=== PATIENT | female | born 1940 | race Caucasian/White ===

== ENCOUNTER 2016-12-14 10:00 | Inpatient (IN) | payer MEDICARE, MEDICAID ==
[~2016-12-14] VITALS: Ht 154.9 cm; Wt 45.4 kg
--- NOTE | ~2016-12-14 | ECH ---
Transthoracic Echocardiography Report (TTE) Demographics Patient Name BLANQUITA TORRES FEBRUARY Date of Study 12/15/2016 Patient Number [id number] Visit Number [id number] Date of 1940 Room Number 407 Accession Number [id number] Gender Female Age 76 year(s) Referring King Jean Claude Gray MD Divorce Lawyer Catrachita Johnson [facility] Physician Evaristo Stallworth MD Physician Interpreting [facility] [place] Transformer Coil Winder Physician MD Supervising Ordering Physician King Jean Claude Gray MD, MD/P Nurse Stress Migration Agent Conclusions Summary Technically fair exam. The estimated left ventricular ejection fraction is 60-65%. Diastolic assessment reveals Grade I diastolic dysfunction. Bubble study was done, there is no evidence for a PFO or ASD. Mild tricuspid regurgitation by color Doppler. Estimated pulmonary pressures within normal range. Procedure Type of Study TTE procedure:Echo Complete SF. Procedure Date Date: 12/15/2016 Start: 10:35 AM Technical Quality: Fair due to poor acoustical window. Indications:Elevated Troponin, Atrial fibrillation and CVA. Appropriate Use Criteria: 9 Contrast Medium: Bubble Study. Height: 61 inches Weight: 99 pounds BSA: 1.4 m Rhythm: Irregular HR: 61 bpm BP: 131/62 mmHg M-Mode/2D Measurements LV Diastolic Dimension: 4.66 cm LV Systolic Dimension: 3.87 cm LV Septum Diastolic: 0.92 cm LV PW Diastolic: 0.75 cm AO Root Dimension: 2.57 cm Cardiac Output: 3.32 l/min LA Dimension: 2.9 cm Cardiac Index: 2.37 l/min*m LA volume index: 18 ml/m LVOT: 1.57 cm RV Base: 2.1 cm LVOT VTI: 28.13 cm RV Mid: 1.3 cm LV Stroke volume: 54.43 ml RV Length: 4.3 cm LV Stroke volume index: 38.88 ml/m Doppler Measurements AV Mean Gradient: 4.18 mmHg MV Peak E-Wave: 0.69 m/s LVOT Peak Velocity: 1.26 m/s MV Peak A-Wave: 0.82 m/s AV Area (Continuity):1.84 cm MV P1/2t: 60.4 msec TR Velocity:2.64 m/s TR Gradient:27.88 mmHg MV Deceleration Time: 208.1 msec Estimated RAP:5 mmHg MV Area (PHT): 3.65 cm Estimated RVSP: 33 mmHg PV Peak Velocity: 1.55 m/s PV Peak Gradient: 9.59 mmHg Estimated PASP: 32.88 mmHg RA Area: 6.94 cm Findings Left Ventricle The left ventricle is normal in size . Diastolic assessment reveals Grade I diastolic dysfunction. Right Ventricle Normal right ventricle structure and function. Left Atrium Normal left atrial size. Bubble study was done, there is no evidence for a PFO or ASD. Right Atrium Normal right atrial size. Mitral Valve Normal mitral valve structure and function. Aortic Valve The aortic valve is mildly sclerotic. Tricuspid Valve Normal tricuspid valve structure and function. Mild tricuspid regurgitation by color Doppler. Estimated pulmonary pressures within normal range. Pulmonic Valve The pulmonic valve is not well visualized. Pericardial Effusion No evidence of pericardial effusion. Miscellaneous Visualized portions of the aortic root and ascending aorta appear normal in size. Pleural Effusion No evidence of pleural effusion. Contractility Score LV regional wall motion:(0-Non visualized 1-Normal 2-Hypokinesis 3-Akinesis 4-Dyskinesis 5-Aneurysm) Signature
--- NOTE | ~2016-12-14 | WND ---
ADMIT: 12/14/2016 RM/LOC: 407 [facility] MR#: [id number] [facility]#: [id number] [address] [address] BLANQUITA TORRES February [address] [place] [address] Wound Care Clinic SEX: F AGE: 76 : 1940 DATE OF VISIT: 12/18/2016 TIME IN: 1455 hours. TIME OUT: 1505 hours. REASON FOR VISIT: Evaluation and treatment of buttock wounds. This is a request for wound care from Dr. Clemens. HISTORY OF PRESENT ILLNESS: This is a 76-year-old female, who was seen by Wound Care in April of 2016 when she moved to live with her son and his family in [place], [place]. At that time, she was diagnosed with a stage II pressure ulcerations on her left and right buttock. Hydrocolloids was used to heal the wounds. On December 14, 2016, she came to the emergency room with concerns about leg weakness. She had a significant stroke with deficit on the left side in the past. CT scan showed a right basal ganglion defects, but no bleed. She is noted to have atrial fibrillation with rapid ventricular response. She was admitted to the inpatient status for further evaluation and care. She has been followed by Dr. Jean Claude Butt for atrial fib with rapid ventricular response, questionable chest pain. She converted to sinus rhythm on a Cardizem drip. She was also seen by Surgery because of upper gastrointestinal bleed, positive fecal occult blood test and went to surgery today for an EGD. It was noted that she has an open area on her coccyx, therefore [facility] was [facility] by Dr. Clemens for further evaluation and care. Patient was placed on a low air loss mattress. PAST MEDICAL HISTORY: Hypertension. Hyperlipidemia. Generalized anxiety disorder. Late effect of infarction. Hemiplegia with left hemiparesis. Osteoarthritis of the vertebral lumbar area. Stroke syndrome on April of 2015. Skin cancer removed from her arm. Cholecystectomy. [place] with angioplasty in 1984. Tobacco abuse. ALLERGIES: Penicillin. CURRENT MEDICATIONS: Per the MAR. Please see the MAR for further details: 1. Cardizem. 2. Klor-Con. 3. Lioresal. 4. Lipitor. 5. Lopressor. 6. Mucinex. 7. Neurontin. 8. Protonix. 9. Singulair. 10.DuoNeb. 11.Pulmicort. 12.Habitrol. 13.D5 and half-normal saline with KCl. ADMIT: 12/14/2016 RM/LOC: 407 [facility] MR#: [id number] [address] [address] [place] [place] [address] Wound Care Clinic SEX: F AGE: 76 : 1940 14.Merrem. 15.Nitroglycerin drip. P.r.n. medications include: 1. Maalox. 2. Surfak. 3. Tylenol. 4. DuoNeb. 5. Proventil. 6. Tylenol suppository. 7. Nitrostat. 8. Morphine. FAMILY HISTORY: Significant for diabetes in a sister. Heart disease in 2 sons and an older brother. She has a son with tuberculosis. Mother with bone cancer. Father from old age. SOCIAL HISTORY: She resides in [place], [place] with her son's family. 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 She continues to smoke 8-12 cigarettes per day and does so since age 15. No alcohol or illicit drug use. Regular diet. 9th grade education. REVIEW OF SYSTEMS: She is examined in her hospital room where she is awake and alert. However, she does not respond to questions. She is currently on a low air loss mattress, unable to obtain any other review of systems. PHYSICAL EXAMINATION: VITAL SIGNS: Temperature 96.5, pulse 60, respirations 16, blood pressure 141/61, and O2 sats on room air is 99%. Focused exam, body wide skin exam was done. She does appear to have some contractures in her lower extremities. On her sacral, coccyx, buttocks area and gluteal crease is a slit that measures 1.2 cm with a pink base. Slight maceration noted. There is pink scarring noted on the left buttock 0.6 x 0.4 ADMIT: 12/14/2016 RM/LOC: 407 [facility] MR#: [id number] [address] [address] [place] [place] [address] Wound Care Clinic SEX: F AGE: 76 : 1940 cm and pink scar in the right buttock 0.5 cm x 0.7 cm. The rest of the skin exam showed no issues. ASSESSMENT: Moisture-associated dermatitis, gluteal crease. PLAN: We will continue on a low air loss mattress. Chair air cushion if she is up. Position changes every 2 hours. Off the coccyx if able. Float the heels off surfaces. Aloe Gary to the gluteal crease 4 times a day and p.r.n. stooling. Thank you for this referral. Wound will continue to follow while she is inpatient. Autumn Alvarado APRN/ kennedi JOB #: [id number] CC: Federico Loera, Attending Physician Federico Loera, Family Physician
--- NOTE | 2016-12-15 07:17 | HP ---
ADMIT: 12/14/2016 RM/LOC: 407 [facility] MR#: [id number] [address] [address] BLANQUITA TORRES [address] [place] [address] History and Physical SEX: F AGE: 76 : 1940 DATE OF SERVICE: CHIEF COMPLAINT: Atrial fibrillation with rapid ventricular response, possible new stroke, and possible pneumonia. HISTORY OF PRESENT ILLNESS: Blanquita is a 76-year-old female, who is cared for in our office by Ileana Paez, nurse practitioner. Blanquita moved to [facility] in 2014 after suffering a cerebrovascular accident while living in [place]. She moved back to [place] to be taken care by her son and [id number]. She currently lives at their home and is cared for by the [id number] part time receptionist. Blanquita apparently had some right-sided weakness on her right leg, this morning was brought into the emergency room. She has a history of a left-sided stroke in 2014, right brain stroke involving the left side of her body with permanent residual weakness on the left side. She is a wheelchair-bound. She has had some problems with decubitus ulcers on her left hip and buttocks, has been followed by Wound Care. In any event, she presented to the emergency room with complaints of right foot weakness and was found to be in AFib with rapid ventricular response. Heart rate was [address] scan of the brain did not show any acute bleed, showed some right basal ganglia, old changes. Blanquita also states she has had a cough, congestion in the past week, did not have any fever, coughing up white sputum, no blood in it, but does feel rather congested. Chest x-ray shows a left midlung infiltrate. At this time, she denies any pain. PAST MEDICAL HISTORY: Difficult to obtain as family is not here at time of interview and the patient has some speech issues related to her previous stroke. Review of her old records, she has history of an [place] in 1984 with angioplasty, stroke around April of 2015, also history of generalized anxiety disorder, tobacco abuse, hypertension, hyperlipidemia, and osteoarthritis. ALLERGIES: THERE IS HISTORY OF PENICILLIN ALLERGY LISTED IN THE RECORDS. MEDICATIONS: 1. Neurontin 300 mg at bedtime. 2. Daliresp 500 mcg p.o. daily. 3. Pulmicort 0.5 Respules b.i.d. 4. Lopressor 25 mg b.i.d. 5. Lipitor 40 mg at bedtime. 6. Singulair 10 mg daily. 7. Baclofen 20 mg t.i.d.. 8. Lortab 5/325, one b.i.d. p.r.n. for pain. 9. Neurontin 100 mg t.i.d. PREVIOUS SURGICAL HISTORY: Includes a cholecystectomy. SOCIAL HISTORY: She is , lives with her son and [id number]. ADMIT: 12/14/2016 RM/LOC: 407 [facility] MR#: [id number] [address] [address] [place] [place] [address] History and Physical SEX: F AGE: 76 : 1940 Denies alcohol use. Does smoke 4 to 5 cigarettes daily. FAMILY HISTORY: Positive on mother's side for bone cancer, father's side for coronary artery disease. Sister with diabetes and also history in the family of seizure disorder. REVIEW OF SYSTEMS: GENERAL: The patient denies any complaints or problems other than the recent cough, URI, but denies any fever or any weight change. HEENT: Denies any headache, blurry vision, or double vision. PULMONARY: Recent cough productive of white sputum. No blood in the sputum. No chest pain. CARDIAC: History of coronary artery disease and hypertension. Denies any chest pain. Denies knowing it she has ever been in AFib in the past. GI: Negative. : Negative. MUSCULOSKELETAL: Positive for the left-sided residual hemiparesis due to previous stroke. Positive for osteoarthritis, primarily of the lumbar vertebrae. PSYCHIATRIC: Positive for generalized anxiety disorder. Rest of review of systems negative. PHYSICAL EXAMINATION: GENERAL: A 76-year-old female, appears older than her stated age. VITAL SIGNS: In the emergency room were stable. BP is 128/88, respiratory rate is 22, temp 98.4, pulse at this time is 72 and regular. The rhythm strip now shows that she is back in sinus rhythm with a heart rate in the 70s. Previous EKG showed the AFib with rapid ventricular response. HEENT: Pupils equal, round, and reactive to light. Extraocular muscles difficult to assess. Tympanic membranes not visualized. Throat is moist, not inflamed. NECK: Supple. She has some loss of range of motion consistent with age and osteoarthritis. No meningeal signs. LUNGS: Show bilateral scattered rhonchi with decreased breath sounds in the left lung. No wheezes heard at this time. No respiratory distress. No retractions. HEART: Regular rate. No murmur heard. BREASTS: Not examined. ABDOMEN: Soft. No organomegaly or tenderness. : Deferred. RECTAL: Deferred. EXTREMITIES: No clubbing, cyanosis, or edema. She does have left-sided hemiparesis and is able to move her right foot and right ankle. NEUROLOGIC: Her speech is somewhat dysarthric. IMPRESSION: 1. Atrial fibrillation with rapid ventricular response, now converted to sinus rhythm. 2. Possible new-onset right-sided stroke, left-sided brain with a negative ADMIT: 12/14/2016 RM/LOC: 407 [facility] MR#: [id number] [address] [place] [id number] TORRES[place] [address] History and Physical SEX: F AGE: 76 : 1940 [address] scan. 3. Prior cerebrovascular accident involving right brain, left body with left hemiparesis. 4. History of decubitus of left hip. 5. Hypertension. 6. Coronary artery disease, previous history of myocardial infarction. 7. Osteoarthritis. 8. Tobacco abuse. 9. Dyslipidemia. 10.Generalized anxiety disorder. PLAN: We will admit to telemetry. Get serial EKG, enzymes, Cardiac consult, Neurology consult. She is not an anticoagulant therapy candidate at this time, but would defer that to Neurology. ADDITIONAL DIAGNOSIS: Chest x-ray does show left midlung infiltrate, so we will get cultures of the blood and sputum, started on some IV meropenem. Federico Loera MD/ kennedi JOB #: [id number] CC: Federico Loera, Attending Physician Federico Loera, Family Physician
--- NOTE | 2016-12-18 12:33 | ER ---
ADMIT: 12/14/2016 RM/LOC: 407 [facility] MR#: [id number] [address] [address] BLANQUITA TORRES February [address] [place] [address] Emergency Room Report SEX: F AGE: 76 : 1940 DATE: 12/14/2016 ADDENDUM: A 76-year-old white female coming in with right leg weakness. She has had a significant stroke with deficit on the left in the past. We initially made her a stroke just because this seemed like a new symptom. She can move her foot. CT shows small right basal ganglion deficits, but otherwise no bleed. I do not believe that she is a lytic candidate for a couple reasons; she had significant stroke in the past and difficult to ascertain what is new versus old. She also had atrial fibrillation with rapid rate. She is not on any anticoagulants. We put her on Cardizem drip after giving her 5 IV. At this time, I spoke with Dr. Loera. He will admit for the atrial fibrillation rapid rate but I do not believe that she is a candidate for anything more as far as lytic therapy. I explained that with family. CONDITION ON DISCHARGE: Critical but stable. Sohail Larry MD/ sharonl JOB #: [id number] CC: Federico Loera MD, Attending Physician Federico Loera MD, Family Physician
[2016-12-25] MEDS ORDERED: CARAFATE DPS1 GM PO (12:14)
[2016-12-25] MEDS ORDERED: LOPRESSOR DPS50 MG PO (12:14)
[2016-12-25] MEDS ORDERED: CARDIZEM CD240 M1 PO (12:14)
[2016-12-25] MEDS ORDERED: LIPITOR40 MG PO (12:14)
[2016-12-25] MEDS ORDERED: LIORESAL DPS20 MG PO (12:14)
[2016-12-25] MEDS ORDERED: NEURONTIN DPS300 MG PO (12:15)
[2016-12-25] MEDS ORDERED: MONTELUKAST SOD10 MG PO (12:15)
[2016-12-25] MEDS ORDERED: MUCINEX600 MG PO (12:15)
[2016-12-25] MEDS ORDERED: PROTONIX40 MG PO (12:15)
[2016-12-25] MEDS ORDERED: LOVENOX DP60 MG/0.6 SQ (12:16)
[2016-12-25] MEDS ORDERED: DUONEB DPS3 ML IH ×2 (12:16→12:19)
[2016-12-25] MEDS ORDERED: PULMICORT0.5 MG/2 M IH (12:16)
[2016-12-25] MEDS ORDERED: SURFAK DPS240 MG PO (12:18)
[2016-12-25] MEDS ORDERED: NICOTINE PATCH1 EAC5 TP (12:18)
[2016-12-25] MEDS ORDERED: MAALOX DPS30 ML PO (12:18)
[2016-12-25] MEDS ORDERED: TYLENOL DPS325 MG PO (12:19)
[2016-12-25] MEDS ORDERED: PROVENTIL2.5 MG/3 M IH (12:19)
[2016-12-25] MEDS ORDERED: NITROSTAT0.4 MG SL (12:20)
[2016-12-25] MEDS ORDERED: DALIRESP500 MCG PO (12:21)
[2016-12-25] MEDS ORDERED: ASA325 MG PO (12:21)
[2016-12-25] MEDS ORDERED: COUMADIN5 MG PO (12:23)
--- NOTE | 2016-12-30 07:47 | DS ---
ADMIT: 12/14/2016 RM/LOC: 407 [facility] MR#: [id number] [address] [address] BLANQUITA TORRES [address] [facility] [address] [place] [address] General Discharge Summary SEX: F AGE: 76 : 1940 ADMISSION DATE: 12/14/2016 DISCHARGE DATE: 12/23/2016 ADMITTING DIAGNOSIS: Atrial fibrillation with rapid ventricular response. DISMISSAL DIAGNOSIS: Atrial fibrillation converted to sinus rhythm. COMPLICATING DIAGNOSES: 1. Pneumonia. 2. Gastric ulcer with acute upper gastrointestinal bleed. 3. Cerebrovascular disease with prior history of stroke. 4. Hypertension. 5. Osteoarthritis. 6. Tobacco abuse. 7. Generalized anxiety disorder. 8. Decubitus ulceration history on left hip. CHIEF COMPLAINT AND HISTORY OF PRESENT ILLNESS: A 76-year-old female, who is cared for in our office by Ileana Lewis, nurse-practitioner. Blanquita recently moved to [place] after she suffered a cerebrovascular accident while living at [place]. She moved back to [place] to be taken care by her son and lived at their home. Her [id number] cares for her multimedia instructional designer at home. She came into the emergency room with right-sided weakness, prior history of stroke with left-sided weakness. She felt like her right foot was weaker. In the emergency room, she was found to be in AFib with a ventricular rate of [address] of the brain did not show any acute bleed, but there were chronic changes of cerebrovascular disease. Chest x-ray showed left mid lung infiltrate, so she was admitted for the AFib with rapid ventricular response and pneumonia and possible new stroke. CONSULTANTS: 1. Jean Claude Butt MD. 2. Oscar Nolan MD. LABORATORY REPORTS AND IMAGING: See lab summary sheets for details. Hemoglobin prior to dismissal was 10.2, platelets were 451,000, white count was 10.6, INR prior to dismissal was 1.31. UA was unremarkable. Hematest stools were positive. Electrolytes prior to dismissal; sodium 134, potassium 4.4, chloride 100, CO2 of 27, BUN 10, creatinine 0.7, glucose 126. Liver enzymes were normal. She did develop of low potassium during hospital stay at 2.6. Her troponin I did bump; initial on December 14, was 1.35; repeat was 2.2; following day was 1.87. Free T4 was slightly elevated at 1.78, TSH was normal at 0.94. Influenza A and B swabs were negative. Blood cultures x2 were negative. Sputum was rejected for culture due to greater than [address] scan of the head showed age-related changes, no evidence of any hemorrhage, this is in the emergency room. MRI of the brain did not show any acute bleed. Chest x-ray showed left mid lung opacity developing pneumonia, cannot be ADMIT: 12/14/2016 RM/LOC: 407 [facility] MR#: [id number] [address] [place] [id number] TORRES, [place] [address] General Discharge Summary SEX: F AGE: 76 : 1940 excluded. Repeat chest x-ray showed right upper lobe infiltrate. X-ray of the hip showed bilateral severe degenerative disease. X-ray of the lumbar spine showed mild loss of height of L4, age indeterminate, mild spondylolisthesis of L4 on L5. Chest x-ray on December 17, showed right upper lobe opacities, minimally improved; emphysema is present; hyperinflation present. Knee x-rays did not show any acute injury. Carotid Doppler study showed moderate plaque formation in the right carotid bulb. The patient refused continuation of the exam on the left side. Echocardiogram showed ejection fraction of 60 to 65% with diastolic grade 1 dysfunction, no evidence of a PFO or ASD, mild tricuspid regurg. EKG in the emergency room showed AFib with rapid ventricular response, left anterior hemiblock, multiple ST-T changes. Repeat EKG showed sinus rhythm with left anterior hemiblock, nonspecific ST-T changes. Serial EKG showed possible septal infarct, age undetermined. Serial EKG did not show any change other than sinus rhythm. Gastroscopy was performed on December 14, which showed a mild gastritis with small antral ulceration, large duodenal diverticulum, small sliding hiatal hernia. COURSE IN THE HOSPITAL: Blanquita was admitted through the emergency room. Cultures of the sputum, influenza swab, blood cultures were obtained. Serial EKG enzymes were ordered. Neurology consult was obtained; however, there was no neurologist available. MRI of the brain was ordered. She started on IV meropenem 500 mg q.8 hours. Cardiology placed her on oral Cardizem. She was started on heparin protocol. She developed heme-positive stools, black stools and the aspirin and heparin were stopped. Surgery was consulted. Family and the patient initially declined to have a gastroscopy. She was placed on oral Protonix. She had previously been on IV Pepcid. Cardizem dose was increased, she did convert to normal sinus rhythm. She did not have any further right- sided weakness. As mentioned, anticoagulants were held due to the upper GI bleed. She eventually did have a gastroscopy, which did show a gastric ulcer. At the time of the scope, it was not bleeding. Her stools normalized in color, hemoglobin was stable and felt she was not bleeding any further and she was started back on oral Coumadin and subcu Lovenox until her INR to become therapeutic. Aspirin and oral potassium were held. She was added Carafate 1 g q.i.d. INRs were monitored. She is too weak to return back to home, so Social Service was consulted, arrangements were made for penitentiary. She is to have physical therapy at the penitentiary and INR monitor. DISCHARGE MEDICATIONS: At the time of dismissal to penitentiary, medications were; 1. Carafate 1 g q.i.d. 2. Cardizem 240 mg daily. 3. Lioresal 20 mg p.o. t.i.d. 4. Lipitor 40 mg at bedtime. 5. Lopressor 50 mg b.i.d. ADMIT: 12/14/2016 RM/LOC: 407 [facility] MR#: [id number] 2620 [facility] [address] [place] [phone] TORRES, BLANQUITA February [address] [place] [address] General Discharge Summary SEX: F AGE: 76 : 1940 6. Mucinex 500 mg b.i.d. 7. Neurontin 300 mg daily. 8. Protonix 40 mg b.i.d. 9. Singulair 10 mg daily. 10.DuoNeb twin jet nebulizer q.i.d. 11.Pulmicort Respules 0.5 mg b.i.d. 12.Lovenox 60 mg subcu b.i.d. until INR is greater than 1.5. 13.Habitrol 14 mg patch. DISCHARGE INSTRUCTIONS: She was counseled on smoking cessation. She will be seen back in the office in 1 to 2 weeks. She is to have INR monitored frequently. PT, OT, and Speech Therapy were asked to see her. Federico Loera MD/ kennedi JOB #: [id number] CC: Federico Loera MD, Attending Physician Federico Loera MD, Family Physician
--- NOTE | 2016-12-31 16:58 | CO ---
ADMIT: 12/14/2016 RM/LOC: 407 [facility] MR#: [id number] [id number] [address] BLANQUITA TORRES February [address] [place] [address] Consultation SEX: F AGE: 76 : 1940 DATE OF CONSULTATION: 12/14/2016 ATTENDING PHYSICIAN: Federico Loera CONSULTING PHYSICIAN: Jean Claude Butt MD REASON FOR CONSULT: Atrial fibrillation. Ivon Morrow RN, scribing for Dr. Jean Claude Butt. HISTORY OF PRESENT ILLNESS: Blanquita is a pleasant 76-year-old female, I have been asked to see in Cardiology consultation by Dr. Loera for atrial fibrillation. She has no known history of arrhythmias in the past and did state that she has had a heart catheterization around 1989 in [place] and thought that there was blockage but nothing was done at that time. She does have history of stroke about a year ago or so and is somewhat of a poor historian. She does have history of hypertension, hyperlipidemia, and tobacco use for about 61 years. 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 She takes atorvastatin and metoprolol at home along with aspirin. She denies any history of anticoagulation. Blanquita lives with her son and xsybgmcm-jg-pwu and reports that she was doing well up until this morning when her wqdnaulw-zd-tuy took her granddaughter to school while she was gone. She then began to have headache, then tightness in her jaw, and was very nauseated, feeling like she needed to throw up. When her vxckzmyu-hg-xob arrived, her qmdvnyss-wn-oyx thought she was having a heart attack for what reason, she does not know and she called EMS. When they arrived, she began vomiting. On arrival, she was not found to be in atrial fibrillation with rapid ventricular rate with ST depression. She was started on a Cardizem drip and she converted to sinus rhythm in the emergency room. Cardiac enzymes were drawn and were negative x1 with CK of 105, MB of 1.1, and troponin of 0.027. Repeat EKG was just performed during my consultation. This showed sinus rhythm at 71 beats per minute with no significant ST-T changes. She currently denies any complaints of chest discomfort, jaw discomfort, or nausea; and does not have any complaints of shortness of breath, orthopnea, or peripheral edema. She does have some movement on her left side but does have diffuse weakness and is wheelchair bound at home. PAST MEDICAL HISTORY: 1. Tobacco use. 2. Hypertension. 3. Hyperlipidemia. 4. Possible coronary artery disease per report. 5. Gallbladder disease, status post cholecystectomy. 6. Nocturia. 7. Incontinence. 8. Osteoarthritis. 9. Stroke in 2016. 10.Depression. 11.Hearing loss. ADMIT: 12/14/2016 RM/LOC: 407 [facility] MR#: [id number] [address] [place] [id number] BLANQUITA TORRES [facility] [address] [facility] [address] [place] [address] Consultation SEX: F AGE: 76 : 1940 12.Cataracts. PAST SURGICAL HISTORY: Includes cholecystectomy. ALLERGIES: TO PENICILLIN. MEDICATIONS: Home medications are not completely known yet. She does have: 1. Metoprolol 25 mg tartrate twice daily on her list. 2. Low-dose aspirin. 3. Atorvastatin 20 mg daily. 4. She is on Cardizem drip currently. 5. Potassium. FAMILY HISTORY: Positive family history of diabetes in a sister. Positive family history of cancer in mother who had bone cancer. Denies family history of heart disease or other family members with strokes. SOCIAL HISTORY: Blanquita is she lives with her son and mvorosyr-ul-sii. She drinks one cup of coffee a day. She smokes about a pack a day and has done so for 61 years. No alcohol or drug use. REVIEW OF SYSTEMS: GENERAL: Reports increased fatigue. Denies recent fever, chills, or sweats or weight changes. HEENT: Eyes: She has history of cataracts and corrective lens use. Denies glaucoma. Throat, mouth, and ears; difficulty swallowing and is hard of hearing. PULMONARY: Has some asthma and wheezing, has a loose cough that is not productive. Otherwise, denies sputum production, emphysema or bronchitis. Denies snoring loudly, wakefulness at night, or fatigue upon awakening. GASTROINTESTINAL: Denies heartburn. No change in bowel habits. Denies dark or bloody stools. No history of ulcers, hiatal hernia, or liver disease. Had gallbladder removed, does have some difficulty swallowing. GENITOURINARY: Denies dysuria, hematuria, urinary tract infection, or kidney stones. Denies history of renal insufficiency or failure. Has nocturia as well as incontinence. MUSCULOSKELETAL: Osteoarthritis and denies gout. ENDOCRINE: Denies history of thyroid dysfunction or diabetes. HEMATOLOGIC: Denies history of anemia, easy bruising, or cancer. NEUROLOGIC: History of stroke with left-sided hemiparesis in 2016. Denies seizure or numbness. PSYCHIATRIC: History of depression. Denies anxiety. PHYSICAL EXAMINATION: VITAL SIGNS: Blood pressure 131/62, heart rate 70, respirations 16, temperature 96.5, oxygenation 93% on O2. SKIN: [place], warm and dry. EYES: Sclerae clear. No xanthelasmas. ENT: Oral mucosa is pink and moist. No jugular venous distention or carotid bruits. ADMIT: 12/14/2016 RM/LOC: 407 [facility] MR#: [id number] [facility] [address] [address] TORRES, February [address] [address] Consultation SEX: F AGE: 76 : 1940 CHEST: Respirations are even and unlabored. Lungs are clear to auscultation. HEART: Regular rate and rhythm. Normal S1, S2. No murmurs, rubs or gallops. ABDOMEN: Soft and nontender. MUSCULOSKELETAL: Gait is normal. EXTREMITIES: Peripheral pulses palpable. No clubbing, cyanosis or edema. PSYCHIATRIC: Alert and oriented. Mood and affect are appropriate. DIAGNOSTIC DATA: Chest x-ray on 12/14 showed left mid lung opacities. Sodium 139, potassium 2.8, BUN 17, creatinine 0.7, glucose 114. ProBNP 588. INR 1.17. White blood cell count 13.7, hemoglobin 12.5, hematocrit 37.7, platelets 331. CK 105, MB 1.1. Troponin 0.027. ASSESSMENT AND PLAN: 1. Atrial fibrillation with rapid ventricular response. 2. Questionable chest pain. 3. Hyperlipidemia. 4. Hypokalemia. 5. History of cerebrovascular accident. 6. Questionable history of coronary artery disease. 7. Hypertension. 8. Chronic obstructive pulmonary disease. 9. She has converted to sinus rhythm on Cardizem drip. I will stop that at this point and resume beta-sana at 50 mg p.o. b.i.d. metoprolol tartrate. She had EKG changes while atrial fibrillation with rapid ventricular response, may be rate dependent versus ischemia. I would recommend following cardiac enzymes and checking echocardiogram for wall motion abnormalities, valvular abnormalities, or decreased ejection fraction. She will need ischemic evaluation at some point and will also need to correct her potassium. She will resume her home medications per primary care. I will stop her Cardizem at this point and add p.o. Cardizem CD 180 mg p.o. daily. Thank you for the consultation. I have read and agree with the documentation that has been completed regarding this visit. By signing this record, I attest that the documentation was completed in my physical presence and is an accurate record of the encounter. Ivon Morrow RN / Jean Claude Butt MD / kennedi JOB #: [id number] CC: Federico Loera, Attending Physician Federico Loera, Family Physician
--- NOTE | 2017-01-09 12:20 | CO ---
ADMIT: 12/14/2016 RM/LOC: 407 [facility] MR#: [id number] [id number] [address] BLANQUITA TORRES February [address] [facility] [address] [place] [address] Consultation SEX: F AGE: 76 : 1940 DATE OF CONSULTATION: 12/15/2016 ATTENDING PHYSICIAN: Federico Loera CONSULTING PHYSICIAN: Oscar Nolan MD REASON FOR CONSULTATION: Upper gastrointestinal bleed, positive fecal occult blood test. HISTORY OF PRESENT ILLNESS: Blanquita is a very pleasant 76-year-old female, who has been admitted to the hospital for atrial fibrillation with RVR and stroke like symptoms. While in the hospital, the patient had a bowel movement, which revealed that was positive for blood. She has currently been on a heparin drip and takes aspirin at home. She denies taking any other blood thinning medications, nausea, pain, dark or bloody stools. She is slightly confused however and a poor historian. She does have a positive past medical history for prior stroke. She does not believe she has ever had any endoscopy workup in her past. PAST MEDICAL HISTORY: Significant for: 1. CVA in 2016. 2. Hypertension. 3. Hyperlipidemia. 4. Nocturia. 5. Incontinence. 6. Depression. 7. Hearing loss. PAST SURGICAL HISTORY: 1. No prior EGDs or colonoscopies. 2. Cholecystectomy. ALLERGIES: PENICILLIN. MEDICATIONS: Well documented in chart, please see HPI as well. FAMILY HISTORY: Noncontributory. SOCIAL HISTORY: The patient is a tobacco user, but denies any alcohol or illicit drug use. REVIEW OF SYSTEMS: CONSTITUTIONAL: The patient denies any fever, chills, or night sweats. The rest of comprehensive 10-point review of systems was performed and all other systems are negative. PHYSICAL EXAMINATION: GENERAL: The patient is in no acute distress. She is alert and oriented. HEENT: Head is normocephalic and atraumatic. EOMS are intact. Conjunctivae free of icterus, erythema, pallor. Pinnae, free of deformities. Nose is ADMIT: 12/14/2016 RM/LOC: 407 [facility] MR#: [id number] [address] [address] TORRES, BLANQUITA February [address] [place] [address] Consultation SEX: F AGE: 76 : 1940 midline. No tracheal deviation. NECK: Supple. SKIN: Negative for jaundice, clubbing, edema, pallor, or cyanosis. LUNGS: Normal respiratory effort. HEART: Distal pulses intact. ABDOMEN: Soft, nondistended, and nontender. MUSCULOSKELETAL: Contracture of the left upper and lower extremities. NEURO: Cranial nerves II through XII grossly intact. LABORATORY DATA: Hemoglobin currently at 11.4. Fecal occult blood testing, positive. ASSESSMENT: Upper gastrointestinal bleed. PLAN: The patient has refused any endoscopy at this time. However, I do find it is reasonable given the marginally low hemoglobin. I did discuss with the patient that if her hemoglobin continued to drop that inpatient EGD will be necessary and the patient will be more willing to undergo this at that time. So, for now, we will watch her hemoglobin and follow her while in the hospital. She is in agreement of this plan, had all her questions answered, and would like to proceed. She does make her own medical decisions as she has no POA. Thanks for the consultation of this patient. JM Bates / Oscar Nolan MD / kennedi JOB #: [id number] CC: Federico Loera, Attending Physician Federico Loera, Family Physician
--- NOTE | 2017-01-20 10:44 | OR ---
ADMIT: 12/14/2016 RM/LOC: 407 [facility] MR#: [id number] [address] [address] [place] [address] Operative/Delivery Room Report SEX: F AGE: 76 : 1940 SURGERY DATE: 12/18/2016 SURGEON: Pedro Damon MD PREOPERATIVE DIAGNOSIS: Anemia, question gastrointestinal blood loss. POSTOPERATIVE DIAGNOSES: 1. Small sliding-type hiatal hernia. 2. Mild antral gastritis with small antral ulceration. 3. Large duodenal diverticulum. PROCEDURE PERFORMED: EGD with biopsies. ANESTHESIA: Sedation. ESTIMATED BLOOD LOSS: None. DESCRIPTION OF PROCEDURE: After appropriate informed consent was obtained, the patient was brought to the endoscopy suite. IV sedation was provided. A well-lubricated endoscope was introduced and passed down the esophagus. The esophageal mucosa appeared normal throughout. No evidence of any reflux changes. No stricture or narrowing. She did have about 1-2 cm sliding-type hiatal hernia. No Talha ulcerations. The scope was advanced to the stomach. The gastric mucosa and the fundus appeared normal. The gastric antrum though was mildly inflamed and there was just a small punctate ulceration in the pyloric channel. The pylorus was intubated. Duodenal bulb appeared normal. She did have a large duodenal diverticulum noted on the second portion of the duodenum. No evidence of any inflammation. There was some retained food within the diverticulum though. The scope was drawn back into the stomach. Retroflexed again revealing a small hiatal hernia from below. No proximal gastritis or mass. Several biopsies taken in the antrum around the ulceration. The stomach was then deflated and scope withdrawn without apparent complications. The patient tolerated the procedure well, was taken to the recovery room in stable condition. Pedro Damon MD/ kennedi JOB #: [id number] CC: Federico Loera, Attending Physician Federico Loera, Family Physician
== END 2016-12-23 13:13 | DRG 308 ==
LOC: ER 10:00 → 4PCU 12:15
PROVIDERS: ADMIT Family Medicine
PROC: 0DB68ZX Excision of Stomach, Via Natural or Artificial Opening Endoscopic, Diagnostic (ICD-10-PCS; principal; 2016-12-18)
DX: I48.0 Paroxysmal atrial fibrillation (principal); J18.9 Pneumonia, unspecified organism; K25.4 Chronic or unspecified gastric ulcer with hemorrhage; E44.0 Moderate protein-calorie malnutrition; I69.354 Hemiplegia and hemiparesis following cerebral infarction affecting left non-dominant side; I69.321 Dysphasia following cerebral infarction; J44.0 Chronic obstructive pulmonary disease with (acute) lower respiratory infection; J44.1 Chronic obstructive pulmonary disease with (acute) exacerbation; Z68.1 Body mass index [BMI] 19.9 or less, adult; D62 Acute posthemorrhagic anemia; M16.0 Bilateral primary osteoarthritis of hip; K29.70 Gastritis, unspecified, without bleeding; I25.2 Old myocardial infarction; K57.10 Diverticulosis of small intestine without perforation or abscess without bleeding; L30.8 Other specified dermatitis; K44.9 Diaphragmatic hernia without obstruction or gangrene; E87.6 Hypokalemia; I25.10 Atherosclerotic heart disease of native coronary artery without angina pectoris; F41.1 Generalized anxiety disorder; K21.9 Gastro-esophageal reflux disease without esophagitis; H91.90 Unspecified hearing loss, unspecified ear; I10 Essential (primary) hypertension; F32.9 Major depressive disorder, single episode, unspecified; J45.909 Unspecified asthma, uncomplicated; R32 Unspecified urinary incontinence; M47.816 Spondylosis without myelopathy or radiculopathy, lumbar region; E78.5 Hyperlipidemia, unspecified; F17.210 Nicotine dependence, cigarettes, uncomplicated; Z99.3 Dependence on wheelchair; Z82.49 Family history of ischemic heart disease and other diseases of the circulatory system; Z79.82 Long term (current) use of aspirin